=== PATIENT | female | born 1990 | race African-American/Black ===

== ENCOUNTER 2017-12-30 20:15 | Emergency (ER) | payer SELFPAY, OTHER ==
[2017-12-30] MEDS: cefTRIAXone IM 250 MG VIAL IM (20:57)
[2017-12-30] MEDS: AZITHROMYCIN 250 MG TABLET. PO (20:57)
[2017-12-30 21:00] LABS: BILIRUBIN,URINE NEGATIVE (NEG); CLARITY,URINE CLEAR; COLOR,URINE YELLOW; GLUCOSE,URINE NEGATIVE (NEG); NITRITE,URINE NEGATIVE (NEG); PROTEIN,URINE 30 mg/dL (NEG-TRACE)
[2017-12-30 21:01] LABS: URINE HCG POC HCG NEGATIVE (Negative)
[2017-12-30 21:06] LABS: RBC,URINE OCC /HPF (0-2); SQUAMOUS EPITHELIAL CELL,UR MOD /LPF; WBC,URINE OCC /HPF (0-4)
[2017-12-30 21:07] LABS: BACTERIA,URINE MODERATE /HPF (0-FEW)
[2018-01-01 14:26] LABS: CHLAMYDIA PROBE Positive (Negative); GC PROBE Negative (Negative)
== END 2017-12-30 21:47 | disposition home or self-care (01) ==
LOC: ER 21:47
DX: N76.0 Acute vaginitis (principal); B96.89 Other specified bacterial agents as the cause of diseases classified elsewhere; R10.30 Lower abdominal pain, unspecified; Z20.2 Contact with and (suspected) exposure to infections with a predominantly sexual mode of transmission; Z98.890 Other specified postprocedural states; Z88.7 Allergy status to serum and vaccine
CPT/HCPCS: 81001; 81025; 87086; 87491; 87591; 96372; 99284; J0696; Q0111; Q0144